=== PATIENT | male | born 1995 | race Caucasian/White ===

== ENCOUNTER 2021-08-31 08:55 | Inpatient (IN) | payer OTHER ==
[~2021-08-31] VITALS: Ht 165.1 cm; Wt 69.9 kg
[2021-08-31] MEDS ORDERED: TETANUS, DIPHTHERIA, PERTUSSIS VAC/PF 0.5ML (>10YR OLD) IM ONE (09:30)
[2021-08-31] MEDS ORDERED: CEFAZOLIN 1000MG PREMIX 50 ML IV ONE (09:45)
[2021-08-31] MEDS ORDERED: MORPHINE SULFATE 2 MG/ML CPJ (NOT FOR IM USE) IV ONE (09:45)
[2021-08-31 10:42] LABS: BASOPHILS % 0.4 % (0.0-2.0); EOSINOPHILS % 0.5 % (0.0-5.0); HEMATOCRIT. 39.2 % (42.0-52.0); HEMOGLOBIN. 14.1 g/dL (14.0-18.0); LYMPHOCYTES % 12.1 % (20.0-50.0); MEAN CORPUSCULAR HEMOGLOBIN 30.7 pg (28.0-32.0); MEAN CORPUSCULAR VOLUME 85.7 fL (80.0-94.0); MONOCYTES % 4.4 % (2.0-8.0); NEUTROPHILS % 82.6 % (40.0-76.0); PLATELET 354 x1000/uL (130-400); RED BLOOD CELL COUNT 4.58 mill/uL (4.7-6.1)
[2021-08-31 10:50] LABS: CHLORIDE 107 mEq/L (98-107)
[2021-08-31 11:07] LABS: INR 1.1; PARTIAL THROMBOPLASTIN TIME 26.7 sec (23.4-31.0); PROTHROMBIN TIME 11.8 sec (9.6-11.0)
[2021-08-31] MEDS ORDERED: IOHEXOL-350 100 ML BOTTLE ONE (12:42)
[2021-08-31] MEDS ORDERED: MORPHINE SULFATE 4 MG/ML CPJ (NOT FOR IM USE) IV ONE ×2 (14:00→20:00)
[2021-08-31] MEDS ORDERED: POLYMYXIN B SULFATE 500000 UNITS/VIAL ONE (16:22)
[2021-08-31] MEDS ORDERED: BACITRACIN 15GM TUBE TOP ONE (16:22)
[2021-08-31] MEDS ORDERED: VANCOMYCIN HCL 1 GM/VIAL ONE (16:22)
[2021-08-31] MEDS ORDERED: HYDROMORPHONE HCL/PF 2MG/ML CPJ IV PRN (20:45)
[2021-08-31] MEDS ORDERED: MORPHINE SULFATE 2 MG/ML CPJ (NOT FOR IM USE) IV PRN (20:45)
[2021-08-31] MEDS ORDERED: SODIUM CHLORIDE 0.9% 1,000 ML IV ONE (20:45)
[2021-08-31] MEDS ORDERED: ONDANSETRON HCL 4MG/2ML INJ IV PRN (20:45)
[2021-08-31] MEDS ORDERED: MEPERIDINE HCL/PF 25MG/ML CPJ IV PRN ×2 (20:45)
[2021-08-31] MEDS ORDERED: PROPOFOL 200MG/20ML VIAL IV ONE (21:00)
[2021-08-31] MEDS ORDERED: FENTANYL CITRATE/PF 50MCG/ML 2ML VIAL ONE (21:00)
[2021-08-31] MEDS ORDERED: METOCLOPRAMIDE HCL 10MG/2ML VIAL ONE (21:01)
[2021-08-31] MEDS ORDERED: GLYCOPYRROLATE 0.2 MG/ML 2ML VIAL ONE (21:01)
[2021-08-31] MEDS ORDERED: MIDAZOLAM HCL 2 MG/2 ML VIAL ONE (21:01)
[2021-08-31] MEDS ORDERED: SUCCINYLCHOLINE CHLORIDE 200MG/10ML IV ONE (21:01)
[2021-08-31] MEDS ORDERED: ONDANSETRON HCL 4MG/2ML INJ ONE (21:01)
[2021-08-31] MEDS ORDERED: CEFAZOLIN SODIUM 1000MG/VIAL ONE (21:04)
[2021-08-31 23:20] VITALS: BP 135/82
[2021-09-01] MEDS: HYDROCODONE/ACETAMINOPHEN 5/325MG TABLET PO PRN ×2 (00:49→10:44)
[2021-09-01] MEDS: CEFAZOLIN 1000MG PREMIX 50 ML IV SCH ×2 (05:26→12:58)
[2021-09-01] MEDS ORDERED: MAGNESIUM/ALUMINUM HYDROXIDE/SIMETHICONE 30ML UDC PO PRN (06:30)
[2021-09-01] MEDS ORDERED: ONDANSETRON HCL 4MG/2ML INJ IV PRN (06:30)
[2021-09-01] MEDS ORDERED: CLONIDINE 0.1MG TABLET PO PRN (06:30)
[2021-09-01 08:00] VITALS: BP 112/71
[2021-09-01 12:00] VITALS: BP 119/71
[2021-09-01 13:14] VITALS: BP 112/71
== END 2021-09-01 15:44 | disposition home or self-care (01) | DRG 909 ==
LOC: ER 08:55 → 6EST 16:04 → ENRESERV 21:23 → CANBEDREQ 21:46
PROVIDERS: ADMIT Hospitalist; ATTEND Hospitalist
PROC: 0JCN0ZZ Extirpation of Matter from Right Lower Leg Subcutaneous Tissue and Fascia, Open Approach (ICD-10-PCS; principal; 2021-08-31)
DX: S81.041A Puncture wound with foreign body, right knee, initial encounter (principal); M25.461 Effusion, right knee; X58.XXXA Exposure to other specified factors, initial encounter; Y93.89 Activity, other specified; Y92.89 Other specified places as the place of occurrence of the external cause; Y99.8 Other external cause status; Z20.822 Contact with and (suspected) exposure to COVID-19; M25.561 Pain in right knee
CPT/HCPCS: 36415; 73560; 73706; 76000; 80053; 85025; 87426; 88300; 90715; 97162; 99285; J0330; J0690; J2175; J2250; J2270; J2405; J2704; J2765; J3010; J3370; J3490; L1830; Q9967